=== PATIENT | male | born 1975 | race Caucasian/White ===

== ENCOUNTER → 2020-03-17 | Emergency (ER) | payer OTHER ==
[~2020-03-17] VITALS: Ht 172.7 cm; Wt 77.1 kg
[~2020-03-17] MED LIST: MIRALAX17 GM PO; PEPCID20 MG PO
== END | disposition home or self-care (01) ==
LOC: ER 21:26 → EDSEX 21:38
DX: K59.09 Other constipation (principal); R10.84 Generalized abdominal pain; Z03.818 Encounter for observation for suspected exposure to other biological agents ruled out

== ENCOUNTER 2020-03-22 22:03 | Inpatient (IN) | payer OTHER ==
[~2020-03-22] VITALS: Ht 172.7 cm; Wt 76.2 kg
[2020-04-16] MEDS ORDERED: AMOX1TAB5 PO (11:03)
[2020-04-16] MEDS ORDERED: PROTONIX40 MG PO (11:03)
== END 2020-04-16 13:47 | disposition home or self-care (01) | DRG 391 ==
LOC: ER 22:03 → SEC-K 03-23 11:34 → SURH 03-23 11:34 → MEDJ 03-25 01:39 → SURH 03-25 12:25 → MEDJ 03-25 12:30 → SURH 03-25 22:06
PROVIDERS: ADMIT Surgery; ATTEND Surgery
PROC: 0W9G30Z Drainage of Peritoneal Cavity with Drainage Device, Percutaneous Approach (ICD-10-PCS; 2020-03-24)
PROC: 02HV33Z Insertion of Infusion Device into Superior Vena Cava, Percutaneous Approach (ICD-10-PCS; 2020-03-24)
PROC: 8E0ZXY6 Isolation (ICD-10-PCS; 2020-03-27)
PROC: 3E0336Z Introduction of Nutritional Substance into Peripheral Vein, Percutaneous Approach (ICD-10-PCS; 2020-03-31)
PROC: 0W9G30Z Drainage of Peritoneal Cavity with Drainage Device, Percutaneous Approach (ICD-10-PCS; 2020-04-01)
PROC: BW21ZZZ Computerized Tomography (CT Scan) of Abdomen and Pelvis (ICD-10-PCS; principal; 2020-04-12)
DX: K57.20 Diverticulitis of large intestine with perforation and abscess without bleeding (principal); K65.1 Peritoneal abscess; Z16.12 Extended spectrum beta lactamase (ESBL) resistance; Z20.822 Contact with and (suspected) exposure to COVID-19; B96.29 Other Escherichia coli [E. coli] as the cause of diseases classified elsewhere

== ENCOUNTER 2020-10-14 18:59 | Emergency (ER) | payer OTHER ==
[~2020-10-14] VITALS: Ht 172.7 cm; Wt 68.0 kg
[~2020-10-14 18:59] MED LIST changes: +AMOX1TAB5 PO; +PROTONIX40 MG PO
[2020-10-14] MEDS ORDERED: CLONOPIN (19:17)
[2020-10-14] MEDS ORDERED: LORAZEPAM1 MG PO (23:12)
== END 2020-10-15 00:24 | disposition home or self-care (01) ==
LOC: ER 18:59
DX: R07.89 Other chest pain (principal); M94.0 Chondrocostal junction syndrome [Tietze]